=== PATIENT | male | born 2005 | race Caucasian/White ===

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

== ENCOUNTER 2025-08-03 06:49 | Observation (INO) | payer BC ==
[2025-08-03 08:21] LABS: ABSOLUTE IMMATURE GRANULOCYTES 0.02 x10^3/uL (0.0-0.031); BASOPHILS # 0.04 x10^3/uL (0.01-0.08); EOSINOPHIL % 0.7 % (0.8-7.0); EOSINOPHILS # 0.07 x10^3/uL (0.04-0.54); MCHC 34.1 g/dl (32.3-36.5); MEAN CELL VOLUME 83.3 fl (79.0-92.2); MEAN PLT VOLUME 8.7 fl (9.4-12.4); MONOCYTE # 1.07 x10^3/uL (0.30-0.82); MONOCYTE % 10.4 % (5.3-12.2); RDW 11.7 % (11.9-15.3)
[2025-08-03] MEDS ORDERED: ACETAMINOPHEN INJECTION 100 ML ONE (08:36)
[2025-08-03] MEDS ORDERED: METOCLOPRAMIDE HCL INJECTION 10 MG/2 ML VIAL ONE (08:36)
[2025-08-03] MEDS: ACETAMINOPHEN 1000 MG/100 ML BAG IVPB ONE (08:40)
[2025-08-03] MEDS: METOCLOPRAMIDE HCL INJECTION 10 MG/2 ML VIAL IVPB ONE (08:41)
[2025-08-03] MEDS: SODIUM CHLORIDE 1,000 ML IV STA (08:41)
[2025-08-03 09:21] LABS: COCAINE, UR NEGATIVE (NEGATIVE)
[2025-08-03 09:22] LABS: OPIATES, URI POSITIVE (NEGATIVE); PHENCYCLIDINE,URINE NEGATIVE (NEGATIVE); URINE AMPHETAMINES NEGATIVE (NEGATIVE); URINE BARBITURATES NEGATIVE (NEGATIVE); URINE BENZODIAZEPINES NEGATIVE (NEGATIVE)
[2025-08-03 09:23] LABS: METHADONE, UR NEGATIVE (NEGATIVE)
[2025-08-03 09:40] LABS: ALK PHOS 91.0 U/L (45-117); CO2 25.0 mmol/L (21-32); CREATININE 0.8 mg/dl (0.6-1.3); GLUCOSE,RANDOM 95.0 mg/dl (74-106); SGOT/AST 12.0 U/L (15-37); SGPT/ALT 10.0 U/L (7-52); TOT PROT 6.8 g/dl (6.4-8.2)
[2025-08-03] MEDS: LORazepam 2 MG/ML SDV VIAL IVPUSH STA (11:27)
[2025-08-03] MEDS ORDERED: LORazepam 2 MG/ML SDV VIAL ONE (11:27)
[2025-08-03] MEDS ORDERED: levETIRAcetam 500 MG/5 ML INJECTION VIAL IVPB ONE ×3 (11:30→11:48)
[2025-08-03] MEDS: levETIRAcetam 500 MG/5 ML INJECTION VIAL IVPB ONE ×2 (11:50→22:59)
[2025-08-03] MEDS: levETIRAcetam 500 MG TABLET (FP) PO ONE (16:47)
[2025-08-04 01:01] LABS: GLUCOSE,RANDOM 104.0 mg/dL (74-106)
[2025-08-04 01:03] LABS: CO2 21.0 mmol/L (21-32)
[2025-08-04 01:07] LABS: CREATININE 0.82 mg/dL (0.55-1.3)
[2025-08-04 01:31] VITALS: RESP 18
[2025-08-04 04:35] VITALS: BMI 20.5
[2025-08-04] MEDS ORDERED: LORazepam 2 MG/ML SDV VIAL IVPUSH PRN (08:01)
[2025-08-04 08:16] LABS: ABSOLUTE IMMATURE GRANULOCYTES 0.01 x10^3/uL (0.0-0.031); BASOPHILS # 0.03 x10^3/uL (0.01-0.08); EOSINOPHIL % 1.2 % (0.8-7.0); EOSINOPHILS # 0.13 x10^3/uL (0.04-0.54); MCHC 33.3 g/dl (32.3-36.5); MEAN CELL VOLUME 85.0 fl (79.0-92.2); MEAN PLT VOLUME 9.5 fl (9.4-12.4); MONOCYTE # 1.00 x10^3/uL (0.30-0.82); MONOCYTE % 8.9 % (5.3-12.2); RDW 11.9 % (11.9-15.3)
[2025-08-04] MEDS: levETIRAcetam 500 MG TABLET (FP) PO SCH (09:23)
[2025-08-04 14:33] VITALS: BP 101/51; PULSE 73; TEMP 98.8
== END 2025-08-04 19:24 | disposition home or self-care (01) ==
LOC: FER 06:49 → FM/S 12:23
PROVIDERS: ADMIT Internal Medicine; ATTEND Internal Medicine
PROC: 3E033NZ Introduction of Analgesics, Hypnotics, Sedatives into Peripheral Vein, Percutaneous Approach (ICD-10-PCS; principal; 2025-08-03)
PROC: 3E033GC Introduction of Other Therapeutic Substance into Peripheral Vein, Percutaneous Approach (ICD-10-PCS; 2025-08-03)
PROC: 3E0337Z Introduction of Electrolytic and Water Balance Substance into Peripheral Vein, Percutaneous Approach (ICD-10-PCS; 2025-08-03)
DX: R56.9 Unspecified convulsions (principal); F17.210 Nicotine dependence, cigarettes, uncomplicated; Z91.010 Allergy to peanuts
CPT/HCPCS: 36415; 70450-TC; 70553-TC; 80048; 80053; 80307; 82550; 83735; 84100; 85025; 93005; 99291; G0378